=== PATIENT | male | born 1955 | race African-American/Black ===

== ENCOUNTER 2018-05-24 01:59 | Inpatient (IN) | payer MEDICAID ==
[~2018-05-24] VITALS: Ht 177.8 cm; Wt 69.9 kg
[~2018-05-24 01:59] MED LIST: METF-414 MT
[2018-05-24] MEDS ORDERED: MORPHINE SULFATE 4 MG/ML CPJ (NOT FOR IM USE) IV STA (02:32)
[2018-05-24] MEDS ORDERED: ONDANSETRON HCL 4MG/2ML INJ IV STA (02:32)
[2018-05-24] MEDS ORDERED: SODIUM CHLORIDE 0.9% 1,000 ML IV ONE (02:45)
[2018-05-24 02:53] LABS: BASOPHILS % 0.5 % (0.0-2.0); EOSINOPHILS % 0.1 % (0.0-5.0); HEMATOCRIT. 34.5 % (42.0-52.0); HEMOGLOBIN. 11.1 g/dL (14.0-18.0); LYMPHOCYTES % 23.9 % (20.0-50.0); MEAN CORPUSCULAR HEMOGLOBIN 28.2 pg (28.0-32.0); MEAN CORPUSCULAR VOLUME 87.8 fL (80.0-94.0); MONOCYTES % 5.4 % (2.0-8.0); NEUTROPHILS % 70.1 % (40.0-76.0); PLATELET 301 x1000/uL (130-400); RED BLOOD CELL COUNT 3.93 mill/uL (4.7-6.1); RED CELL DISTRIBUTION WIDTH 21.3 % (11.6-14.6)
[2018-05-24 02:57] LABS: CHLORIDE 111 mEq/L (98-107)
[2018-05-24] MEDS ORDERED: POTASSIUM CHLORIDE 20MEQ TABLET SR PO NR (04:00)
[2018-05-24 06:07] LABS: CLARITY URINE CLEAR (CLEAR); COLOR URINE YELLOW (YELLOW); KETONES URINE 2+ (NEGATIVE); LEUKOCYTE ESTERASE URINE NEGATIVE (NEGATIVE); NITRITE URINE NEGATIVE (NEGATIVE); OCCULT BLOOD URINE NEGATIVE (NEGATIVE); PROTEIN URINE TRACE (NEGATIVE); UROBILINOGEN URINE 0.2 E.U./dL (0.2-1.0)
[2018-05-24] MEDS ORDERED: IPRATROPIUM/ALBUTEROL 0.5-3(2.5)MG/3ML NEB INH PRN (08:00)
[2018-05-24] MEDS ORDERED: ONDANSETRON HCL 4MG/2ML INJ IV PRN (08:00)
[2018-05-24] MEDS ORDERED: DIPHENHYDRAMINE 50MG/ML VIAL IV PRN (08:00)
[2018-05-24 09:47] LABS: PHOSPHORUS 2.7 mg/dL (2.5-4.9)
[2018-05-24] MEDS: PANTOPRAZOLE SODIUM 40 MG/VIAL IV SCH (13:00)
[2018-05-24 15:24] VITALS: BP 139/82
[2018-05-24] MEDS ORDERED: GABA-290 PO (15:38)
[2018-05-24] MEDS ORDERED: HYDR50SY PO (15:38)
[2018-05-24] MEDS ORDERED: MELO-106 PO (15:38)
[2018-05-24] MEDS ORDERED: LEVO100T9 MT (15:38)
[2018-05-24] MEDS ORDERED: DEXTROSE 50% WATER 50ML SYRINGE IV PRN (15:45)
[2018-05-24] MEDS ORDERED: OXYC-611 PO (16:06)
[2018-05-24 17:08] LABS: CREATINE KINASE 134 IU/L (39-308)
[2018-05-24] MEDS: MORPHINE SULFATE 4 MG/ML CPJ (NOT FOR IM USE) IV PRN ×2 (17:34→22:43)
[2018-05-24] MEDS: BLOOD SUGAR DIAGNOSTIC STRIP TEST SCH ×2 (17:48→21:00)
[2018-05-24] MEDS: INSULIN LISPRO 100 UNITS/ML SUBCUT SCH ×2 (17:49→21:00)
[2018-05-24 20:00] VITALS: BP 133/75
[2018-05-25] VITALS: BP 140/76
[2018-05-25] MEDS: MORPHINE SULFATE 4 MG/ML CPJ (NOT FOR IM USE) IV PRN ×5 (03:38→23:57)
[2018-05-25 04:00] VITALS: BP 131/72
[2018-05-25] MEDS: DEXTROSE 5% WATER 1,000 ML IV SCH ×2 (07:45→21:21)
[2018-05-25] MEDS: BLOOD SUGAR DIAGNOSTIC STRIP TEST SCH ×4 (07:45→20:46)
[2018-05-25] MEDS: INSULIN LISPRO 100 UNITS/ML SUBCUT SCH ×4 (07:45→20:46)
[2018-05-25 08:00] VITALS: BP 145/85
[2018-05-25] MEDS: PANTOPRAZOLE SODIUM 40 MG/VIAL IV SCH (09:17)
[2018-05-25 12:00] VITALS: BP 133/74
[2018-05-25] MEDS: HYDROCODONE/ACETAMINOPHEN 5/325MG TABLET PO PRN (14:27)
[2018-05-25] MEDS: HYDROMORPHONE HCL/PF 2MG/ML CPJ IV PRN ×2 (14:40→20:33)
[2018-05-25 15:48] VITALS: BP 141/86
[2018-05-25 17:20] LABS: INR 1.3; PROTHROMBIN TIME 13.2 sec (9.1-11.1)
[2018-05-25 20:00] VITALS: BP 135/82
[2018-05-26] VITALS: BP 126/85
[2018-05-26] MEDS: HYDROMORPHONE HCL/PF 2MG/ML CPJ IV PRN ×4 (03:24→23:53)
[2018-05-26 04:00] VITALS: BP 132/83
[2018-05-26] MEDS: BLOOD SUGAR DIAGNOSTIC STRIP TEST SCH ×4 (06:52→21:09)
[2018-05-26] MEDS: INSULIN LISPRO 100 UNITS/ML SUBCUT SCH ×4 (06:53→21:00)
[2018-05-26 07:51] LABS: BASOPHILS % 1.1 % (0.0-2.0); HEMATOCRIT. 35.6 % (42.0-52.0); HEMOGLOBIN. 11.5 g/dL (14.0-18.0); LYMPHOCYTES % 28.6 % (20.0-50.0); MEAN CORPUSCULAR HEMOGLOBIN 28.9 pg (28.0-32.0); MEAN CORPUSCULAR VOLUME 89.1 fL (80.0-94.0); MEAN PLATELET VOLUME 8.5 fl (7.4-10.4); MONOCYTES % 6.9 % (2.0-8.0); NEUTROPHILS % 62.4 % (40.0-76.0); PLATELET 210 x1000/uL (130-400); RED BLOOD CELL COUNT 3.99 mill/uL (4.7-6.1); RED CELL DISTRIBUTION WIDTH 21.2 % (11.6-14.6)
[2018-05-26 07:56] LABS: CHLORIDE 107 mEq/L (98-107)
[2018-05-26] MEDS: PANTOPRAZOLE SODIUM 40 MG/VIAL IV SCH (08:15)
[2018-05-26] MEDS: MORPHINE SULFATE 4 MG/ML CPJ (NOT FOR IM USE) IV PRN ×2 (08:16→15:22)
[2018-05-26] MEDS ORDERED: SODIUM BICARBONATE 4% (2.4MEQ) 5ML VIAL IV ONE (09:40)
[2018-05-26] MEDS: DEXTROSE 5% WATER 1,000 ML IV SCH (14:26)
[2018-05-26 20:00] VITALS: BP 135/81
[2018-05-26] MEDS: OXYCODONE HCL 10MG TABLET SR 12HR PO SCH (20:56)
[2018-05-27] VITALS: BP 139/81
[2018-05-27] MEDS: DEXTROSE 5% WATER 1,000 ML IV SCH ×2 (02:26→17:29)
[2018-05-27] MEDS: HYDROCODONE/ACETAMINOPHEN 5/325MG TABLET PO PRN (03:20)
[2018-05-27 04:00] VITALS: BP 131/76
[2018-05-27] MEDS: HYDROMORPHONE HCL/PF 2MG/ML CPJ IV PRN ×3 (05:51→19:59)
[2018-05-27] MEDS: BLOOD SUGAR DIAGNOSTIC STRIP TEST SCH ×4 (06:32→21:00)
[2018-05-27] MEDS: INSULIN LISPRO 100 UNITS/ML SUBCUT SCH ×4 (07:50→21:00)
[2018-05-27 08:00] VITALS: BP 126/77
[2018-05-27] MEDS: OXYCODONE HCL 10MG TABLET SR 12HR PO SCH ×2 (08:47→22:15)
[2018-05-27] MEDS: FAMOTIDINE 20MG/2ML VIAL IV SCH ×3 (08:47→22:14)
[2018-05-27 12:00] VITALS: BP 128/79
[2018-05-27 12:34] LABS: BASOPHILS % 0.6 % (0.0-2.0); EOSINOPHILS % 0.5 % (0.0-5.0); HEMATOCRIT. 35.8 % (42.0-52.0); HEMOGLOBIN. 11.5 g/dL (14.0-18.0); MEAN CORPUSCULAR HEMOGLOBIN 28.7 pg (28.0-32.0); MEAN CORPUSCULAR VOLUME 89.1 fL (80.0-94.0); MEAN PLATELET VOLUME 8.6 fl (7.4-10.4); MONOCYTES % 6.7 % (2.0-8.0); NEUTROPHILS % 67.2 % (40.0-76.0); PLATELET 205 x1000/uL (130-400); RED BLOOD CELL COUNT 4.02 mill/uL (4.7-6.1)
[2018-05-27 15:37] VITALS: BP 134/82
[2018-05-27 19:40] LABS: CHLORIDE 101 mEq/L (98-107)
[2018-05-27 20:00] VITALS: BP 146/89
[2018-05-28] VITALS: BP 148/92
[2018-05-28] MEDS: HYDROMORPHONE HCL/PF 2MG/ML CPJ IV PRN ×3 (01:51→14:20)
[2018-05-28 04:00] VITALS: BP 135/85
[2018-05-28] MEDS: DEXTROSE 5% WATER 1,000 ML IV SCH (05:33)
[2018-05-28] MEDS: BLOOD SUGAR DIAGNOSTIC STRIP TEST SCH ×3 (06:57→17:20)
[2018-05-28] MEDS: INSULIN LISPRO 100 UNITS/ML SUBCUT SCH ×3 (06:57→17:40)
[2018-05-28 08:00] VITALS: BP 132/67
[2018-05-28] MEDS ORDERED: KCL 20MEQ/100ML PREMIX 100 ML IV ONE (08:00)
[2018-05-28] MEDS: FAMOTIDINE 20MG/2ML VIAL IV SCH (08:18)
[2018-05-28] MEDS: OXYCODONE HCL 10MG TABLET SR 12HR PO SCH (09:00)
[2018-05-28] MEDS: MORPHINE SULFATE 4 MG/ML CPJ (NOT FOR IM USE) IV PRN ×2 (10:58→16:29)
[2018-05-28 12:00] VITALS: BP 131/73
[2018-05-28] MEDS ORDERED: POLY17PO3 MT (12:25)
[2018-05-28] MEDS ORDERED: MSCON15 MT (12:25)
[2018-05-28] MEDS ORDERED: OXYC-662 MT (12:25)
[2018-05-28] MEDS ORDERED: POLYETHYLENE GLYCOL 3350 (17GM) 1 DOSE PACK PO NR (12:30)
[2018-05-28 16:00] VITALS: BP 127/67
[2018-05-28 17:32] VITALS: BP 127/67
== END 2018-05-28 19:40 | disposition home or self-care (01) | DRG 281 ==
LOC: ER 03:05 → 6EST 03:52 → ENRESERV 07:24
PROVIDERS: ADMIT Internal Medicine; ATTEND Internal Medicine
PROC: 0W9G3ZZ Drainage of Peritoneal Cavity, Percutaneous Approach (ICD-10-PCS; principal; 2018-05-26)
DX: C22.7 Other specified carcinomas of liver (principal); R18.8 Other ascites; E46 Unspecified protein-calorie malnutrition; Z93.0 Tracheostomy status; E11.9 Type 2 diabetes mellitus without complications; D50.9 Iron deficiency anemia, unspecified; E87.6 Hypokalemia; Z68.22 Body mass index [BMI] 22.0-22.9, adult; Z82.49 Family history of ischemic heart disease and other diseases of the circulatory system; Z85.05 Personal history of malignant neoplasm of liver; Z85.21 Personal history of malignant neoplasm of larynx; Z79.899 Other long term (current) drug therapy; Z79.84 Long term (current) use of oral hypoglycemic drugs
CPT/HCPCS: 36415; 49083; 71045; 76700; 80048; 80076; 82550; 82962; 83036; 83735; 84100; 87015; 87045; 87427; 87449; 89055; 93970; 96374; 96375; 97162; 97166; 99285; C9113; J1170; J2270; J2405; J3480; J3490; J7030; J7042; J7070